=== PATIENT | female | born 1935 | race Caucasian/White ===

== ENCOUNTER 2016-11-05 13:42 | Emergency (ER) | payer MEDICARE ==
[2016-03-24 12:23] VITALS: BMI 30.1
[~2016-11-05 13:42] MED LIST: AMBIEN10 MG PO; AMOXICILLIN875 MG PO; ASPIRIN EC81 M1 PO; BAYER CHEWABLE81 MG PO; CATAPRES0.1 MG PO; DICLOFENAC SODI50 MG PO; FLAGYL250 MG PO; HYDROCODON-ACE1 EAC9 PO; NEURONTIN600 MG PO; NITROQUICK0.4 MG SL; NORVASC5 MG PO; PEPCID20 MG PO; PLAVIX75 MG PO; PRAVACHOL20 MG PO; PROZAC40 MG PO; SYNTHROID88 MCG PO; VALIUM 2 MG TAB2 MG PO; VITAMIN D50000 UNIT PO; ZESTRIL40 MG PO; ZOFRAN8 MG PO
[2016-11-05 14:08] LABS: BASOPHILS 0.2 % (0-2); EOSINOPHILS 2.7 % (0-7); HEMOGLOBIN 12.5 g/dL (12-16); IMMATURE GRANULOCYTES 0.5 % (0-5); LYMPHOCYTES 32.9 % (15-50); MCH 28.5 pg (26.0-34.0); MCHC 32.1 g/dL (31.0-37.0); MCV 88.8 fL (80.0-100.0); MEAN PLATELET VOLUME 11.3 fL (7.4-10.4); MONOCYTES 7.3 % (2-11); NEUTROPHILS 56.4 % (40-80); PLATELET COUNT 173 10x3/uL (130-400); RBC 4.39 10x6/uL (4.00-5.40); RDW 13.8 % (11.5-14.5); WBC 5.7 10x3/uL (4.8-10.8)
[2016-11-05 14:22] LABS: ALBUMIN 3.4 g/dL (3.4-5.0); ANION GAP 12.5 mmol/L (8-16); BILIRUBIN - TOTAL 0.32 mg/dL (0.2-1.3); CALCIUM 9.8 mg/dL (8.5-10.1); CARBON DIOXIDE 25.4 mmol/L (21.0-32.0); CREATININE - SERUM 1.5 mg/dL (0.6-1.3); POTASSIUM - SERUM 3.9 mmol/L (3.5-5.1); PROTEIN - SERUM 6.9 g/dL (6.4-8.2)
[2016-11-05 15:26] LABS: APPEARANCE CLEAR (CLEAR); BILIRUBIN NEGATIVE (NEGATIVE); COLOR YELLOW (YELLOW); GLUCOSE NEGATIVE (NEGATIVE); KETONE NEGATIVE (NEGATIVE); LEUKOCYTE ESTERASE TRACE (NEGATIVE); NITRITE NEGATIVE (NEGATIVE); PROTEIN TRACE mg/dL (NEGATIVE); SPECIFIC GRAVITY 1.025 (1.005-1.020); UROBILINOGEN NORMAL (NORMAL)
[2016-11-05 15:28] LABS: BACTERIA MODERATE /hpf (NONE SEEN); EPITHELIAL CELLS 0-5 /hpf (0-5); RED CELLS - URINE 0-5 /hpf (0-5)
== END 2016-11-05 15:59 | disposition home or self-care (01) ==
LOC: D.ER 13:42
PROVIDERS: Emergency Medicine
DX: R53.1 Weakness (principal); Z86.73 Personal history of transient ischemic attack (TIA), and cerebral infarction without residual deficits; I10 Essential (primary) hypertension

== ENCOUNTER 2017-04-03 10:09 | Emergency (ER) | payer MEDICARE ==
[2016-03-24 12:23] VITALS: BMI 30.1
== END 2017-04-03 12:12 | disposition home or self-care (01) ==
LOC: D.ER 10:09
DX: M25.551 Pain in right hip (principal); W06.XXXA Fall from bed, initial encounter; Y93.89 Activity, other specified; Y92.013 Bedroom of single-family (private) house as the place of occurrence of the external cause

== ENCOUNTER 2017-06-22 04:28 | Inpatient (IN) | payer MEDICARE ==
[~2017-06-22] VITALS: Ht 175.3 cm; Wt 101.2 kg
[2017-06-22 05:45] LABS: BASOPHILS 0.1 % (0-2); EOSINOPHILS 1.2 % (0-7); HEMATOCRIT 42.5 % (36.0-48.0); HEMOGLOBIN 13.4 g/dL (12-16); IMMATURE GRANULOCYTES 0.6 % (0-5); LYMPHOCYTES 16.7 % (15-50); MCH 28.8 pg (26.0-34.0); MCHC 31.5 g/dL (31.0-37.0); MCV 91.4 fL (80.0-100.0); MEAN PLATELET VOLUME 12.2 fL (7.4-10.4); MONOCYTES 5.9 % (2-11); NEUTROPHILS 75.5 % (40-80); PLATELET COUNT 170 10x3/uL (130-400); RBC 4.65 10x6/uL (4.00-5.40); RDW 14.2 % (11.5-14.5); WBC 8.1 10x3/uL (4.8-10.8)
[2017-06-22 06:06] LABS: ALBUMIN 3.5 g/dL (3.4-5.0); ANION GAP 21.7 mmol/L (8-16); BILIRUBIN - TOTAL 0.58 mg/dL (0.2-1.3); CALCIUM 10.4 mg/dL (8.5-10.1); CARBON DIOXIDE 16.7 mmol/L (21.0-32.0); POTASSIUM - SERUM 5.4 mmol/L (3.5-5.1); PROTEIN - SERUM 7.6 g/dL (6.4-8.2)
[2017-06-22 06:11] LABS: MAGNESIUM - SERUM 2.6 mg/dL (1.8-2.4); THYROID STIMULATING HORMONE 6.71 uIU/mL (0.36-3.74)
[2017-06-22 10:23] LABS: APPEARANCE CLEAR (CLEAR); BILIRUBIN NEGATIVE (NEGATIVE); COLOR YELLOW (YELLOW); GLUCOSE NEGATIVE (NEGATIVE); KETONE NEGATIVE (NEGATIVE); NITRITE NEGATIVE (NEGATIVE); PROTEIN NEGATIVE (NEGATIVE); UROBILINOGEN NORMAL (NORMAL)
[2017-06-22 11:20] LABS: CKMB 0.5 U/L (0.0-3.6); CREATINE KINASE 44 UL (21-215)
[2017-06-22 11:24] LABS: TROPONIN-I < 0.017 ng/mL (0.000-0.060)
--- NOTE | 2017-06-22 13:12 | NUR ---
PT ARRIVED VIA WHEELCHAIR ACCOMPANIED BY ER STAFF. PT IS ALERT AND ORIENTED. ON ROOM AIR. IV SEEN TO RIGHT AC THAT IS CURRENTLY SALINE LOCKED. YELLOW ID BAND PLACED ON PT (DUE TO HX OF FALLS) ALONG WITH NON-SKID SOCKS. TRAY ORDERED FOR PT. CUP OF ICE WATER PLACED AT BEDSIDE. PT IS AWARE TO USE CALL LIGHT IF NEEDING ASSISTANCE FROM STAFF MEMBERS. WILL ADMIT PT AND CONTINUE TO MONITOR AND CONTINUE WITH PLAN OF CARE.
[2017-06-22 13:56] VITALS: BP 137/70; BMI 33.3
[2017-06-22] MEDS ORDERED: HYSINGLA ER20 MG PO (13:56)
[2017-06-22 16:00] VITALS: BP 134/60
--- NOTE | 2017-06-22 17:33 | NUR ---
ON MONITOR SHOWING SR, HR 91.
--- NOTE | 2017-06-22 17:48 | NUR ---
ATTEMPTED TO PLACE SCDS ON PT HOWEVER SCD MACHINE IS NOT WORKING PROPERLY. MAINTENANCE CALLED, SPOKE WITH PUSHPA. PUSHPA STATES THAT [facility] USUALLY DEALS WITH THE SCD MACHINES AND THEY HAVE ALREADY LEFT. PUSHPA ASKED IF I COULD GET ANOTHER MACHINE, I INFORMED PUSHPA THAT MACHINES ARE ATTATCHED TO THE BED. WILL CALL [facility] ON SHIFT TOMORROW.
--- NOTE | 2017-06-22 18:22 | NUR ---
PT SITTING UP IN BED WITH EYES OPEN RESTING. SCDS PLACED ON PT DUE TO MAINTENENCE PERSONEL COMING AND SWITCHING OUT SCD MACHINES. PT IS REQUESTING ME TO HELP RE-POSITION HER. RE-POSITIONED PT REQUESTED. NO FURTHER NEED AT THIS TIME. WILL CONTINUE TO MONITOR.
--- NOTE | 2017-06-22 19:33 | NUR ---
RECEIVED REPORT, WILL ASSUME CARE OF PT, PT SLEEPING, BED IS LOW, SRX2, CALL LIGHT IN REACH, WILL CONTINUE PLAN OF CARE
[2017-06-22 20:11] VITALS: BP 144/63
--- NOTE | 2017-06-22 20:20 | NUR ---
PT REFUSED GABAPENTIN, SAYS SHE QUIT TAKING IT AT HOME, MAKES HER DIZZY
[2017-06-23 00:32] VITALS: BP 145/9
--- NOTE | 2017-06-23 00:55 | NUR ---
ASSESSMENT COMPLETE,SEE FLOWSHEET, PT SLEEPING, BED IS LOW, SRX2, CALL LIGHT IN REACH, WILL CONTINUE PLAN OF CARE
[2017-06-23 04:20] VITALS: BP 148/65
[2017-06-23 05:17] LABS: BASOPHILS 0.2 % (0-2); EOSINOPHILS 3.4 % (0-7); HEMATOCRIT 35.6 % (36.0-48.0); HEMOGLOBIN 11.4 g/dL (12-16); IMMATURE GRANULOCYTES 0.4 % (0-5); LYMPHOCYTES 37.1 % (15-50); MCH 28.6 pg (26.0-34.0); MEAN PLATELET VOLUME 12.1 fL (7.4-10.4); MONOCYTES 11.2 % (2-11); NEUTROPHILS 47.7 % (40-80); PLATELET COUNT 158 10x3/uL (130-400); RBC 3.99 10x6/uL (4.00-5.40); RDW 13.9 % (11.5-14.5)
--- NOTE | 2017-06-23 05:23 | NUR ---
ASKING TO HAVE SCD REMOVED FOR AWHILE
[2017-06-23 05:25] LABS: MCV 89.2 fL (80.0-100.0); WBC 5.5 10x3/uL (4.8-10.8)
[2017-06-23 05:27] LABS: CALCIUM 8.9 mg/dL (8.5-10.1); CREATININE - SERUM 2.6 mg/dL (0.6-1.3)
[2017-06-23 05:45] LABS: ANION GAP 15.4 mmol/L (8-16); CARBON DIOXIDE 21.5 mmol/L (21.0-32.0); POTASSIUM - SERUM 3.9 mmol/L (3.5-5.1)
--- NOTE | 2017-06-23 07:20 | NUR ---
AM ROUNDING- RECEIVED REPORT FROM AMMUNITION COMPONENTS INSPECTOR NURSE MAXIMILIANO. PT IS CURRENTLY LAYING IN BED ON LEFT SIDE WITH EYES OPEN RESTING. ON ROOM AIR. ON MONITOR SHOWING SR, HR 79. IV SEEN TO RIGHT AC THAT IS CURRENTLY SALINE LOCKED. NO NEED AT THIS CURRENT TIME. WILL CONTINUE TO MONITOR AND CONTINUE WITH PLAN OF CARE.
[2017-06-23 07:44] VITALS: Ht 175.3 cm; Wt 101.2 kg
[2017-06-23 07:46] VITALS: BP 174/72
--- NOTE | 2017-06-23 09:46 | NUR ---
AM MEDICATIONS PASSED AND SHIFT ASSESSMENT DONE. PT IS CURRENTLY REQUESTING DONUT PILLOW FOR COMFORT FOR TAILBONE PAIN. [facility] STAFF MEMBER THAT WAS MAKING ROUNDS GAVE THIS NURSE NUMBER TO CALL FOR DONUT PILLOW. WILL CONTINUE TO MONITOR.
--- NOTE | 2017-06-23 12:03 | NUR ---
SPOKE WITH SANTO, WOUND CARE NURSE REGARDING LETTING PT USE DONUT PILLOW FOR COMFORT DUE TO PTS TAILBONE BEING EXTREMLEY SORE. SANTO RN STATES IT IS MORE APPROPIATE TO USE PILLOW UNDER PT TO RELIEVE PRESSURE AND TO TURN FREQUENTLY ON SHIFT. PT IS CURRENTLY TURNED ON PILLOW TO LEFT SIDE. WILL LET PT KNOW ABOUT THIS. WILL CONTINUE TO MONITOR.
[2017-06-23 12:42] VITALS: BP 187/72
[2017-06-23 17:00] VITALS: BP 173/76
--- NOTE | 2017-06-23 17:17 | NUR ---
ASSIST PT TO BATHROOM. ASSIST PT BACK TO BED AND READJUST PT AND PT EATING DINNER. CALL LIGHT WITHIN REACH. CONT TO ANIBAL PT
--- NOTE | 2017-06-23 18:13 | NUR ---
PT IS CURRENTLY LAYING IN BED WITH EYES OPEN RESTING. NO NEED AT THIS CURRENT TIME. WILL CONTINUE TO MONITOR.
[2017-06-23 21:29] VITALS: BP 171/80
--- NOTE | 2017-06-23 23:43 | NUR ---
PATIENT IS PLAYING GAMES ON HER PHONE IN BED. REQUESTS ASSISTANCE TO THE BATHROOM. SHE IS ABLE TO WALK TO THE BATHROOM WITH MINIMAL ASSISTANCE. REPORTS THAT SHE CAN NOT TAKE THE NEURONTIN THAT IS ORDERED BECAUSE IT MAKES HER SO DIZZY. BED LOW CALL LIGHT IN REACH.
[2017-06-24] VITALS (10 sets, daily range): BP systolic 103–199; BP diastolic 64–99
--- NOTE | 2017-06-24 03:16 | NUR ---
PT IM BED RESTING QUIETLY. BREATHING EVEN AND UNLABORED. BED IN LOW POSITION, CALL LIGHT WITHIN REACH. WILL CTM.
--- NOTE | 2017-06-24 05:22 | NUR ---
B/P 195/94 AT 5:20.
[2017-06-24 06:11] LABS: BASOPHILS 0.2 % (0-2); HEMATOCRIT 36.5 % (36.0-48.0); HEMOGLOBIN 11.9 g/dL (12-16); IMMATURE GRANULOCYTES 0.5 % (0-5); LYMPHOCYTES 31.5 % (15-50); MCH 28.5 pg (26.0-34.0); MCHC 32.6 g/dL (31.0-37.0); MCV 87.3 fL (80.0-100.0); MEAN PLATELET VOLUME 11.4 fL (7.4-10.4); MONOCYTES 12.2 % (2-11); NEUTROPHILS 52.6 % (40-80); PLATELET COUNT 154 10x3/uL (130-400); RBC 4.18 10x6/uL (4.00-5.40); RDW 13.7 % (11.5-14.5); WBC 6.6 10x3/uL (4.8-10.8)
[2017-06-24 06:16] LABS: ANION GAP 14.7 mmol/L (8-16); CALCIUM 9.6 mg/dL (8.5-10.1); CARBON DIOXIDE 22.1 mmol/L (21.0-32.0); POTASSIUM - SERUM 3.8 mmol/L (3.5-5.1)
[2017-06-24 06:28] LABS: CREATININE - SERUM 1.8 mg/dL (0.6-1.3)
--- NOTE | 2017-06-24 07:45 | NUR ---
AM ROUNDS - PT IN BED AND APPEARS TO BE SLEEPING WITH EQUAL AND NON LABORED BREATHING. PT IS ON ROOM AIR. IV TO RIGHT AC, SL. EP, K+3.9. MONITOR SHOWING SR, HR 77. PT IS UP WITH ASSIST. YELLOW BAND ON. BED AT LOWEST POSITION. CALL DEY IN USE/REACH. SIDE RAILS UP X2. WILL CONITNUE TO MONITOR
--- NOTE | 2017-06-24 14:36 | NUR ---
Patient Name: SOHA ZAMORA Admission Status: ER Accout number: [id number] Admission Date: 06-22-2017 : 1935 Admission Diagnosis: Attending: MAURA MALONEY Current LOS: 2 Anticipated DC Date: 06-25-2017 Planned Disposition: HOME WITH HOME HEALTH Primary Insurance: MEDICARE A & B PLANNED EXTERNAL PROVIDER: [facility] Discharge Planning Comments: * Is the patient Alert and Oriented? Yes 0 * How many steps to enter\exit or inside your home? 2 0 * PCP DR. KRISHNA 0 * Pharmacy [facility] ON [address] 0 * Preadmission Environment Home Alone 0 * ADLs Independent 0 * Equipment Cane Other Oxygen Rolling Walker 0 * Other Equipment OXYGEN AT NIGHT - FROM COMPANY IN [place] [employer] NO MEDICAL EQUIPMENT PROVIDER PREFERENCE 0 * List name and contact numbers for known caregivers / representatives who currently or will assist patient after discharge: ALPHONSO FUCHS, SISTER, 0 * Community resources currently utilized Home Health Private Duty Care 0 * Please name any agencies selected above. [facility] [phone] [facility], M-F, 8:30AM TO 2:30PM 0 * Additional services required to return to the preadmission environment? No 0 * Can the patient safely return to the preadmission environment? Yes 0 * Has this patient been hospitalized within the prior 30 days at any hospital? Yes 0 CM MET WITH PT IN ROOM TO DISCUSS DISCHARGE PLANNING AND NEEDS. PT REPORTS LIVING AT HOME INDEPENDENTLY AND ALONE. PT HAS NO MEDICAL EQUIPMENT AND [facility] WAS SET TO ADMIT JUST PRIOR TO PT ADMITTING TO HOSPITAL. CM DISCUSSED AVAILABILITY OF HOME HEALTH, REHAB SERVICES AND MEDICAL EQUIPMENT. PT REPORTS SHE CAME IN TO GET REHAB AT [facility]; SHE HAS BEEN THERE BEFORE AND WANTS REFERRAL SENT THERE, REPORTS HER FAMILY WILL PICK HER UP FOR DISCHARGE HOME. CHOICE SIGNED FOR [facility]. CM FAXED REFERRAL TO [facility] AT [phone]. CM CALLED [facility], , SPOKE TO SANTO WHO REPORTS NO BEDS UNTIL LATE NEXT WEEK ARE AVAILABLE. CM SPOKE TO PT IN ROOM, OFFERED OTHER LONG-TERM FACILITY PLACEMENT FOR REHAB. PT WILL NOT GO ANYWHERE ELSE, REPORTS SHE WILL GO HOME WITH [facility], PAY BILLS AND CALL [facility] NEXT WEEK AND TRY TO GET IN THEN. CM CALLED [facility], , SPOKE TO LUIS WHO REPORTS PT TO BE ON HOLD AND THEY CAN ADMIT THE DAY AFTER DISCHARGE. FAXED REFERRAL TO [facility] AT [phone]. FOR DISCHARGE, NOTIFY [facility] AT [phone], FAX DISCHARGE INFORMATION TO [facility] AT [phone]. Ore Dryer: Margarito Richmond
--- NOTE | 2017-06-24 16:41 | NUR ---
PT IN BED AT THIS TIME WITH NO NEEDS. WILL CONTINUE TO MONITOR
[2017-06-25] VITALS: BP 148/57
--- NOTE | 2017-06-25 04:37 | NUR ---
BODY WORKER AT BEDSIDE TO OBTAIN VITALS, CALL LIGHT IN REACH. WILL CONTINUE WITH PLAN OF CARE.
[2017-06-25 06:00] LABS: BASOPHILS 0.1 % (0-2); HEMATOCRIT 37.1 % (36.0-48.0); HEMOGLOBIN 12.2 g/dL (12-16); IMMATURE GRANULOCYTES 0.8 % (0-5); LYMPHOCYTES 31.3 % (15-50); MCH 28.6 pg (26.0-34.0); MCHC 32.9 g/dL (31.0-37.0); MCV 87.1 fL (80.0-100.0); MEAN PLATELET VOLUME 11.7 fL (7.4-10.4); MONOCYTES 11.5 % (2-11); NEUTROPHILS 53.3 % (40-80); PLATELET COUNT 164 10x3/uL (130-400); RBC 4.26 10x6/uL (4.00-5.40); RDW 13.7 % (11.5-14.5); WBC 7.1 10x3/uL (4.8-10.8)
[2017-06-25 06:23] LABS: ANION GAP 14.2 mmol/L (8-16); CREATININE - SERUM 1.7 mg/dL (0.6-1.3); POTASSIUM - SERUM 4.2 mmol/L (3.5-5.1)
--- NOTE | 2017-06-25 07:47 | NUR ---
RECEIVED REPORT ON PATIENT. MORNING ROUNDS MADE. PATIENT RESTING WITH EYES CLOSED. RESPIRATIONS EVEN AND UNLABORED. BED IN LOWEST POSITION, SR UP X 2, CALL LIGHT IN REACH. CPOC.
[2017-06-25 08:46] VITALS: BP 207/99
--- NOTE | 2017-06-25 09:15 | NUR ---
PATIENT REFUSED NORVASC. STATES IT MADE HER "BLACK OUT" AND THAT SHE HAS BEEN TAKEN OFF ALL HTN MEDS AT THIS TIME.
[2017-06-25 12:07] VITALS: BP 167/93
--- NOTE | 2017-06-25 12:13 | NUR ---
Nutrition follow-up: Diet: Renal PO intake 83% average intake of last 6 meals Labs reviewed Wt: 223# +BM PO intake good at this time. RDN following.
--- NOTE | 2017-06-25 12:45 | NUR ---
PATIENT REFUSING NORVASC. STATES SHE DOESN'T WANT TO "BLACK OUT AGAIN". CALLED PHARMACY TO GET MED LIST FAXED OVER. PT NOT SURE OF WHAT SHE NORMALLY TAKES FOR HTN. STATES DR. DOYLE STOPPED THE LISINOPRIL AND THE NORVASC. CPOC.
--- NOTE | 2017-06-25 12:56 | NUR ---
RESTING QUIETLY IN BED. MONITOR SHOWS NSR @ RATE OF 87. WILL CONTINUE TO MONITOR.
[2017-06-25] MEDS ORDERED: CARDURA4 MG PO (14:18)
--- NOTE | 2017-06-25 14:36 | NUR ---
PATIENT SITTING ON SIDE OF BED. WENT OVER ALL DC PAPERWORK. ALL QUESTIONS ANSWERED. PAPERS SIGNED. IV TO RIGHT ARM DC'D WITH TIP INTACT. TELEMETRY REMOVED. CALLED SEPARATOR INSERTER FOR WC ESCORT.
--- NOTE | 2017-06-25 14:42 | NUR ---
PATIENT ESCORTED TO VEHICLE VIA WHEELCHAIR BY STAFF.
--- NOTE | 2017-06-26 09:08 | NUR ---
Patient Name: SOHA ZAMORA Encounter No: [id number] : 1935 Primary Insurance: MEDICARE A & B Anticipated DC Date: 06-25-2017 Planned Disposition: Home with Home Health External Planned Provider: [facility] DCP follow-up note: PT DISCHARGED HOME YESTERDAY, CM CALLED LUIS AT [facility] AT [phone], LUIS ADVISED THAT CM DID CALL YESTERDAY AND FAXED DISCHARGE INFORMATION TO [facility] YESTERDAY. PT IS ON RESUMPTION SCHEDULE FOR TODAY. NO FURTHER NEEDS IDENTIFIED. Green End Worker: Margarito Richmond
== END 2017-06-25 14:50 | disposition home health service (06) | DRG 312 ==
LOC: D.ER 04:28 → D.M2 11:58
PROVIDERS: Emergency Medicine; Family Medicine; ADMIT Family Medicine
DX: I95.1 Orthostatic hypotension (principal); N17.9 Acute kidney failure, unspecified; I11.0 Hypertensive heart disease with heart failure; I50.9 Heart failure, unspecified; I25.10 Atherosclerotic heart disease of native coronary artery without angina pectoris; E78.5 Hyperlipidemia, unspecified; J44.9 Chronic obstructive pulmonary disease, unspecified; E03.9 Hypothyroidism, unspecified; G47.30 Sleep apnea, unspecified; G25.81 Restless legs syndrome; Z86.73 Personal history of transient ischemic attack (TIA), and cerebral infarction without residual deficits; E86.0 Dehydration

== ENCOUNTER 2017-09-19 10:31 | Emergency (ER) | payer MEDICARE ==
[2017-06-23 07:44] VITALS: BMI 33.2
[~2017-09-19 10:31] MED LIST changes: +CARDURA4 MG PO; +HYSINGLA ER20 MG PO
== END 2017-09-19 12:35 | disposition home or self-care (01) ==
LOC: D.ER 10:31
DX: B02.9 Zoster without complications (principal); N18.9 Chronic kidney disease, unspecified; Z86.73 Personal history of transient ischemic attack (TIA), and cerebral infarction without residual deficits

== ENCOUNTER 2017-10-05 09:09 | Inpatient (IN) | payer MEDICARE ==
[2017-10-05] VITALS: BP 98/43
[~2017-10-05] VITALS: Ht 175.3 cm; Wt 106.6 kg
--- NOTE | ~2017-10-05 | EC ---
PATIENT:SOHA ZAMORA DATE OF SERVICE: 10/05/17 SEX: F MEDICAL RECORD: [id number] DATE OF : [birth year] LOCATION:D. D.211 AGE OF PATIENT: 81 ADMISSION DATE: 10/05/17 REFERRING PHYSICIAN: INTERPRETING PHYSICIAN: HANNA CISNEROS MD ECHOCARDIOGRAM REPORT ECHO CHARGES 4 ECHO COMPLETE Date: 10/06 CLINICAL DIAGNOSIS: NEAR SYNCOPE HX OF CAD/STENT/CVA ECHOCARDIOGRAPHIC MEASUREMENTS (adult normal given) AC root (d.<3.7cm) 3.3 cm LV Septum d (<1.2 cm> 1.6 cm Valve Excursion 1.7 cm LV Septum (systole) 1.5 cm Left Atria (s.<4.0cm> 3.6 cm LVPW d(<1.2cm) 1.6 cm RV (d.<2.3cm) 4.2 cm LVPW (sytole) 1.8 cm LV diastole(<5.6CM) 3.6 cm MV E-F(>70mm/sec) cm LV systole 2.5 cm LVOT Diameter 1.7 cm MV exc.(>10mm) 1.6 cm Est.ejection fraction (50-75%) % DOPPLER: LVIT cm/sec A 77.0 cm/sec E 56.0 cm/sec LA cm/sec RVSP 19 mmHg LVOT 106 cm/sec AOP1/2T m/s Asc. Ao 161 cm/sec RVOT cm/sec RA cm/sec PA cm/sec AV Gradient Peak 10.39mmHg AV Mean 5.04 mmHg AV Area 1.9 cm MV Gradient Peak 3.73 mmHg MV Mean 1.43 mmHg MV Area cm COMMENTS: Camelid Fiber Sorter: Alfreda OCONNOR Jawbone Puller: Regina Cisneros TAPE# PACS Pericardial Effusion N DATE OF SERVICE: 10/06/2017 PROCEDURE: Transthoracic echocardiogram. FINDINGS: 1. The quality of the echo is difficult with structures difficult to see. 2. The left ventricle shows possible left ventricular hypertrophy, inflow characteristics consistent with diastolic dysfunction. Overall, the left ventricular ejection fraction appears to be normal, although it was not well visualized. ECHOCARDIOGRAM REPORT [id number] SOHA ZAMORA 3. The left atrium is grossly normal. 4. The aortic valve is grossly normal. 5. The mitral valve is grossly normal. 6. The right ventricle shows right ventricular enlargement and right ventricular hypertrophy as well as the right atrium and again we were not able to see things very well. In certain aspects, this is just overall qualitatively normal study; however, quantitative measurements are not well seen. Ejection fraction appears to be at least 55%. TRANSINT:[id number] Voice Confirmation ID: [id number] DOCUMENT ID: [id number] 10/13/2017 Edited for date of service, [facility]. HANNA CISNEROS MD at 1426 CC: [id number] DICTATION DATE: 10/08/17 0753 SUPERVISOR DRYING AND WINDING: 10/08/17 0935 DIS IN 10/09/17 [address] [place] [address]
[2017-10-05 09:55] LABS: BASOPHILS 0.2 % (0-2); EOSINOPHILS 0.9 % (0-7); HEMATOCRIT 38.7 % (36.0-48.0); HEMOGLOBIN 12.4 g/dL (12-16); IMMATURE GRANULOCYTES 0.2 % (0-5); LYMPHOCYTES 14.9 % (15-50); MCH 28.3 pg (26.0-34.0); MCV 88.4 fL (80.0-100.0); MEAN PLATELET VOLUME 11.5 fL (7.4-10.4); MONOCYTES 5.1 % (2-11); NEUTROPHILS 78.7 % (40-80); RBC 4.38 10x6/uL (4.00-5.40); RDW 14.7 % (11.5-14.5); WBC 10.3 10x3/uL (4.8-10.8)
[2017-10-05 09:56] LABS: PLATELET COUNT 215 10x3/uL (130-400)
[2017-10-05 10:17] LABS: ALBUMIN 3.2 g/dL (3.4-5.0); ALKALINE PHOSPHATASE 82 U/L (46-116); ALT (SGPT) 28 U/L (10-68); BILIRUBIN - TOTAL 0.43 mg/dL (0.2-1.3); CALC OSMOLALITY 306 mosm/kg (275-300); CALCIUM 10.2 mg/dL (8.5-10.1); CARBON DIOXIDE 20.2 mmol/L (21.0-32.0); CHLORIDE - SERUM 108 mmol/L (98-107); CREATININE - SERUM 3.7 mg/dL (0.6-1.3); POTASSIUM - SERUM 4.7 mmol/L (3.5-5.1); PROTEIN - SERUM 7.5 g/dL (6.4-8.2); SODIUM 142 mmol/L (136-145); UREA NITROGEN 60 mg/dL (7-18); eGFR NON AFRICAN AMERICAN 12 mL/min (90-120)
[2017-10-05 10:21] LABS: GLUCOSE 218 mg/dL (74-106)
[2017-10-05 10:28] LABS: AMYLASE - SERUM 50 U/L (25-115); CKMB 0.3 U/L (0.0-3.6); CREATINE KINASE 106 UL (21-215); LIPASE 166 U/L (73-393); TROPONIN-I < 0.017 ng/mL (0.000-0.060)
[2017-10-05 10:44] LABS: COLOR YELLOW (YELLOW)
[2017-10-05 10:45] LABS: APPEARANCE CLEAR (CLEAR); BILIRUBIN NEGATIVE (NEGATIVE); GLUCOSE NEGATIVE (NEGATIVE); KETONE NEGATIVE (NEGATIVE); NITRITE NEGATIVE (NEGATIVE); PROTEIN NEGATIVE (NEGATIVE); SPECIFIC GRAVITY 1.015 (1.005-1.020); UROBILINOGEN NORMAL (NORMAL)
[2017-10-05 15:02] VITALS: BP 101/44
[2017-10-05 15:13] VITALS: BP 101/44; BMI 31.7
[2017-10-05 21:06] VITALS: BP 70/38
[2017-10-06] VITALS (7 sets, daily range): BP systolic 75–106; BP diastolic 30–58; Ht 175.3 cm; Wt 106.6 kg
[2017-10-06 05:29] LABS: BASOPHILS 0.2 % (0-2); EOSINOPHILS 0.7 % (0-7); HEMATOCRIT 41.2 % (36.0-48.0); HEMOGLOBIN 12.9 g/dL (12-16); IMMATURE GRANULOCYTES 0.4 % (0-5); LYMPHOCYTES 18.2 % (15-50); MCHC 31.3 g/dL (31.0-37.0); MCV 89.4 fL (80.0-100.0); MEAN PLATELET VOLUME 11.4 fL (7.4-10.4); NEUTROPHILS 74.5 % (40-80); PLATELET COUNT 232 10x3/uL (130-400); RBC 4.61 10x6/uL (4.00-5.40); RDW 15.1 % (11.5-14.5); WBC 11.3 10x3/uL (4.8-10.8)
[2017-10-06 05:40] LABS: ANION GAP 18.5 mmol/L (8-16); CALCIUM 9.2 mg/dL (8.5-10.1); CARBON DIOXIDE 20.5 mmol/L (21.0-32.0); CREATININE - SERUM 5.2 mg/dL (0.6-1.3); MAGNESIUM - SERUM 2.3 mg/dL (1.8-2.4)
[2017-10-06 16:42] LABS: ERYTHROCYTE SEDIMENTATION RATE 14 mm/hr (0-30)
[2017-10-07 06:19] LABS: BASOPHILS 0.1 % (0-2); EOSINOPHILS 1.9 % (0-7); HEMATOCRIT 35.3 % (36.0-48.0); HEMOGLOBIN 10.8 g/dL (12-16); IMMATURE GRANULOCYTES 0.4 % (0-5); LYMPHOCYTES 23.4 % (15-50); MCH 27.8 pg (26.0-34.0); MCHC 30.6 g/dL (31.0-37.0); MCV 90.7 fL (80.0-100.0); MEAN PLATELET VOLUME 11.3 fL (7.4-10.4); MONOCYTES 10.3 % (2-11); NEUTROPHILS 63.9 % (40-80); PLATELET COUNT 189 10x3/uL (130-400); RBC 3.89 10x6/uL (4.00-5.40); RDW 15.4 % (11.5-14.5); WBC 8.3 10x3/uL (4.8-10.8)
[2017-10-07 06:27] LABS: ANION GAP 19.6 mmol/L (8-16); CALCIUM 8.4 mg/dL (8.5-10.1); CARBON DIOXIDE 19.8 mmol/L (21.0-32.0); CREATININE - SERUM 6.1 mg/dL (0.6-1.3); POTASSIUM - SERUM 4.4 mmol/L (3.5-5.1)
[2017-10-07 06:34] VITALS: BP 99/34
[2017-10-07 10:46] VITALS: BP 139/57
[2017-10-07 15:58] LABS: PRO/CRE RATIO URINE 0.9 mg/g; PROTEIN - URINE 147.6 mg/dL (0.0-11.9)
[2017-10-07 16:16] LABS: APPEARANCE HAZY (CLEAR); BILIRUBIN NEGATIVE (NEGATIVE); COLOR YELLOW (YELLOW); GLUCOSE NEGATIVE (NEGATIVE); KETONE NEGATIVE (NEGATIVE); NITRITE NEGATIVE (NEGATIVE); PROTEIN 1+ mg/dL (NEGATIVE); UROBILINOGEN NORMAL (NORMAL)
[2017-10-07 16:19] LABS: BACTERIA MODERATE /hpf (NONE SEEN); EPITHELIAL CELLS 0-5 /hpf (0-5); WHITE CELLS - URINE >50 /hpf (0-5)
[2017-10-07 20:00] VITALS: BP 106/51
[2017-10-08 04:40] LABS: BASOPHILS 0.2 % (0-2); EOSINOPHILS 2.1 % (0-7); HEMATOCRIT 31.7 % (36.0-48.0); IMMATURE GRANULOCYTES 0.3 % (0-5); LYMPHOCYTES 28.6 % (15-50); MCH 28.2 pg (26.0-34.0); MCHC 31.5 g/dL (31.0-37.0); MCV 89.5 fL (80.0-100.0); MEAN PLATELET VOLUME 11.2 fL (7.4-10.4); MONOCYTES 9.8 % (2-11); PLATELET COUNT 171 10x3/uL (130-400); RBC 3.54 10x6/uL (4.00-5.40); RDW 14.8 % (11.5-14.5)
[2017-10-08 04:41] LABS: WBC 6.1 10x3/uL (4.8-10.8)
[2017-10-08 04:58] LABS: ANION GAP 15.8 mmol/L (8-16); CALCIUM 8.3 mg/dL (8.5-10.1); CARBON DIOXIDE 18.5 mmol/L (21.0-32.0); CREATININE - SERUM 5.4 mg/dL (0.6-1.3); POTASSIUM - SERUM 4.3 mmol/L (3.5-5.1)
[2017-10-08 06:42] VITALS: BP 103/36
[2017-10-08 09:50] VITALS: BP 154/58
[2017-10-08 10:25] VITALS: BP 133/51
[2017-10-08 13:01] VITALS: BP 116/53
[2017-10-08 13:16] LABS: SPE - A/G RATIO 0.9 (0.7-1.7); SPE - ALBUMIN 2.9 g/dL (2.9-4.4); SPE - ALPHA-1 GLOBULIN 0.3 g/dL (0.0-0.4); SPE - ALPHA-2 GLOBULIN 0.8 g/dL (0.4-1.0); SPE - BETA GLOBULIN 1.2 g/dL (0.7-1.3); SPE - GAMMA GLOBULIN 0.9 g/dL (0.4-1.8); SPE - M-SPIKE Not Observed g/dL (Not Observed); SPE - TOTAL PROTEIN 6.2 g/dL (6.0-8.5)
[2017-10-08 17:28] VITALS: BP 151/69
[2017-10-08 21:55] VITALS: BP 146/54
[2017-10-09 00:55] VITALS: BP 130/56
[2017-10-09 04:49] LABS: BASOPHILS 0.2 % (0-2); EOSINOPHILS 2.9 % (0-7); HEMATOCRIT 31.9 % (36.0-48.0); HEMOGLOBIN 10.2 g/dL (12-16); IMMATURE GRANULOCYTES 0.2 % (0-5); LYMPHOCYTES 26.7 % (15-50); MCH 28.1 pg (26.0-34.0); MCV 87.9 fL (80.0-100.0); MEAN PLATELET VOLUME 11.1 fL (7.4-10.4); MONOCYTES 9.5 % (2-11); NEUTROPHILS 60.5 % (40-80); PLATELET COUNT 158 10x3/uL (130-400); RBC 3.63 10x6/uL (4.00-5.40); RDW 14.5 % (11.5-14.5); WBC 5.2 10x3/uL (4.8-10.8)
[2017-10-09 05:17] LABS: ANION GAP 19.4 mmol/L (8-16); CALCIUM 8.7 mg/dL (8.5-10.1); CARBON DIOXIDE 16.9 mmol/L (21.0-32.0); POTASSIUM - SERUM 4.3 mmol/L (3.5-5.1)
[2017-10-09 05:48] VITALS: BP 152/72
[2017-10-09 10:28] VITALS: BP 159/93
[2017-10-09 13:17] VITALS: BP 195/91
[2017-10-09 13:17] LABS: UPE RAND - ALBUMIN 44.1 % (()); UPE RAND - ALPHA 1 GLOBULIN 2.5 % (()); UPE RAND - BETA GLOBULIN 19.2 % (()); UPE RAND - GAMMA GLOBULIN 19.2 % (())
[2017-10-09] MEDS ORDERED: SODIUM CL 0.91000 ML IV (15:58)
[2017-10-09 16:30] VITALS: BP 152/70
== END 2017-10-09 17:15 | DRG 314 ==
LOC: D.ER 09:09 → D.M2 11:28 → D.EDHOLD 11:28 → D.M2 12:09
PROVIDERS: Family Medicine; Internal Medicine Nephrology
DX: I95.89 Other hypotension (principal); N17.0 Acute kidney failure with tubular necrosis; T50.905A Adverse effect of unspecified drugs, medicaments and biological substances, initial encounter; R19.7 Diarrhea, unspecified; E86.0 Dehydration; E78.5 Hyperlipidemia, unspecified; I25.10 Atherosclerotic heart disease of native coronary artery without angina pectoris; J44.9 Chronic obstructive pulmonary disease, unspecified; I11.0 Hypertensive heart disease with heart failure; I50.9 Heart failure, unspecified; E03.9 Hypothyroidism, unspecified; Z95.5 Presence of coronary angioplasty implant and graft; Z86.73 Personal history of transient ischemic attack (TIA), and cerebral infarction without residual deficits

== ENCOUNTER 2017-10-09 18:15 | Inpatient (IN) | payer MEDICARE ==
[~2017-10-09] VITALS: Ht 175.3 cm; Wt 108.0 kg
--- NOTE | ~2017-10-09 | RHP ---
PATIENT: SOHA ZAMORA MEDICAL RECORD: [id number] ACCOUNT: [id number] LOCATION:[facility]17 : [birth year] ADMISSION DATE: 10/09/17 REHABILITATION HISTORY AND PHYSICAL EXAMINATION POST ADMISSION PHYSICIAN EXAMINATION POST-ADMISSION PHYSICAL EXAMINATION AND HISTORY AND PHYSICAL DATE OF ADMISSION: 10/09/2017 ADMITTING DIAGNOSIS: Acute renal failure secondary to hypoperfusion. HISTORY OF PRESENT ILLNESS: The patient is an 81-year-old female patient admitted to inpatient rehabilitation with acute renal failure secondary to hypoperfusion. She was admitted to the hospital from the ER on 10/05. She arrived to the ER complaining of dizziness. Her dizziness sensation was like she was going to pass out. She also states she had a tight sensation in her chest the night prior to coming in. She was fatigued, weak and hypotension with systolic blood pressure running in the 70s. There was no indication that she had a dysrhythmia or ischemic symptoms, rather hypovolemia with resultant orthostasis. On admit, her creatinine was 3.6 and it climbed to 6.1. Nephrology and cardiology were consulted. Heart rate was irregular. She had some paroxysmal atrial fib noted. Her lungs were clear bilaterally. Abdomen was soft. Neurologically, the patient moved all extremities with no gross motor or sensory deficits. She lived alone, was independent with a rolling walker for ADLs and mobility. She has a caregiver, who comes to cook, runs errands, and drops her to her appointments. Currently, she is [id number] assist for ADLs and mobility. She is in chronic AFib, on a quality assurance monitor final. She is wearing O2 at 2 liters nasal cannula. She has a Guido catheter for urinary incontinence and retention. She would like to regain her strength and hopefully return back home to her prior level of functioning. Comorbidities include renal failure, acute kidney injury, hypoperfusion, hypertension, adverse drug effect, dehydration, AFib, UTI, hyponatremia, diarrhea, hypertension, hyperlipidemia, coronary artery disease, hypothyroidism, abdominal pain, generalized weakness, fatigue, anxiety, urinary retention, and diverticulitis. PAST MEDICAL HISTORY: Significant for CVA, neuropathy, TIA, weakness, vertigo, thyroid problems, coronary artery disease, COPD, O2 dependent, depression, and anxiety. PAST SURGICAL HISTORY: Includes gallbladder surgery, hysterectomy, left knee replacement. She has also had a partial colectomy. ALLERGIES: SEAFOOD, STATINS, ANY TYPE OF HMG-COA REDUCTASE INHIBITORS. CURRENT MEDICATIONS: She is on vitamin D 50,000 units. She is on Synthroid 88 mcg daily. She is on Prozac 40 mg daily, Cardura 4 mg daily, Plavix 75 mg daily, aspirin 81 mg daily. She is on Nitrostat p.r.n., Natalia 1 tab every 4 hours p.r.n., and Valium 2 mg b.i.d. p.r.n. HABITS: No alcohol or tobacco use. FAMILY HISTORY: Noncontributory. SOCIAL HISTORY: The patient hopes to return back home and get back to her prior HISTORY AND PHYSICAL [id number] SOHA ZAMORA level of functioning with her caregiver. REVIEW OF SYSTEMS: GENERAL: Does complain of weakness. HEENT: Denies cold, cough, or congestion. CARDIOVASCULAR: Denies chest pain. PHYSICAL EXAMINATION: VITAL SIGNS: Stable, afebrile. GENERAL: An elderly female, in no acute distress upon exam. HEENT: Normocephalic and atraumatic. Mucosa moist. NECK: Supple. No lymphadenopathy. LUNGS: Clear at this time. HEART: Irregular rate and rhythm. ABDOMEN: Benign. EXTREMITIES: No clubbing, cyanosis, or edema. NEUROLOGIC: She was noted to be weak. LABORATORY DATA: Her white count is 5.6, H&H of 10.4 and 31.9, and platelet count was 179. Sodium 146, potassium 4.2, BUN and creatinine of 41 and 2.7, blood sugars noted to be 88. ASSESSMENT: This is an 81-year-old female patient admitted to rehab with a working diagnosis of hypoperfusion and critical illness myopathy. The patient has potential to make improvement. We will institute the following multidisciplinary therapies including, but not limited to physical, occupational, respiratory, speech, nutritional services, prosthetics and orthotics. Given her complex medical condition and risk for more complications, rehabilitation services cannot be provided at a low level of care such as a longterm facility. PLAN: 1. Admit to [facility] for intensive inpatient therapy to include the following disciplines: A. Physical therapy to improve gait, all transfer skills and bed mobility to a modified independent level. B. Occupational therapy to improve activities of daily living to a modified independent level. C. Case management to assist with discharge planning and placement options. D. Nutrition to assist with nutritional needs. E. Rehabilitation nursing to assist in monitoring the patient's underlying medical conditions and to assist with any type of bowel or bladder management. 2. The patient's current medications will be continued. 3. She is having some elevated blood pressures, so I am going to treat this appropriately. 4. Appreciate renal seeing this patient with us. I am going to follow up on Thursday a.m. or earlier if possible. TRANSINT:[id number] Voice Confirmation ID: [id number] DOCUMENT ID: [id number] EVER notes whether there has been none or any medical/functional change since admission: - No change since preadmission screen. HISTORY AND PHYSICAL [id number] SOHA ZAMORA attests patient continues to be appropriate for IRF: - Continues to be appropriate. KANE GAMBOA MD at 0841 CC: [id number] DICTATION DATE: 10/10/17 0846 DIRECTOR ELECTRICAL ENGINEERING: 10/10/17 1100 ADM IN [address] [place] [address]
[~2017-10-09 18:15] MED LIST changes: +SODIUM CL 0.91000 ML IV
[2017-10-09 21:22] VITALS: BP 189/86
[2017-10-09 23:07] VITALS: BMI 35.2
[2017-10-10 05:13] LABS: BASOPHILS 0.2 % (0-2); EOSINOPHILS 3.1 % (0-7); HEMATOCRIT 31.9 % (36.0-48.0); HEMOGLOBIN 10.4 g/dL (12-16); IMMATURE GRANULOCYTES 0.4 % (0-5); LYMPHOCYTES 25.4 % (15-50); MCHC 32.6 g/dL (31.0-37.0); MEAN PLATELET VOLUME 10.6 fL (7.4-10.4); MONOCYTES 10.6 % (2-11); NEUTROPHILS 60.3 % (40-80); PLATELET COUNT 179 10x3/uL (130-400); RBC 3.71 10x6/uL (4.00-5.40); WBC 5.6 10x3/uL (4.8-10.8)
[2017-10-10 05:22] LABS: ANION GAP 14.5 mmol/L (8-16); CALCIUM 8.6 mg/dL (8.5-10.1); POTASSIUM - SERUM 4.2 mmol/L (3.5-5.1)
[2017-10-10 05:26] LABS: CARBON DIOXIDE 23.7 mmol/L (21.0-32.0); CREATININE - SERUM 2.7 mg/dL (0.6-1.3)
[2017-10-10 07:11] VITALS: BP 201/83
[2017-10-10 14:25] VITALS: Ht 175.3 cm; Wt 108.0 kg
[2017-10-10 19:46] VITALS: BP 183/80
[2017-10-11 10:23] VITALS: BP 148/88
[2017-10-11 19:18] VITALS: BP 171/90
[2017-10-12 05:58] LABS: BASOPHILS 0.2 % (0-2); EOSINOPHILS 3.1 % (0-7); HEMATOCRIT 33.2 % (36.0-48.0); IMMATURE GRANULOCYTES 0.3 % (0-5); LYMPHOCYTES 26.1 % (15-50); MCH 28.3 pg (26.0-34.0); MCHC 33.1 g/dL (31.0-37.0); MCV 85.3 fL (80.0-100.0); MEAN PLATELET VOLUME 10.9 fL (7.4-10.4); NEUTROPHILS 60.3 % (40-80); PLATELET COUNT 195 10x3/uL (130-400); RBC 3.89 10x6/uL (4.00-5.40); WBC 6.1 10x3/uL (4.8-10.8)
[2017-10-12 06:06] LABS: ANION GAP 16.3 mmol/L (8-16); CALCIUM 8.4 mg/dL (8.5-10.1)
[2017-10-12 06:12] LABS: CREATININE - SERUM 1.7 mg/dL (0.6-1.3); POTASSIUM - SERUM 3.3 mmol/L (3.5-5.1)
[2017-10-12 08:26] VITALS: BP 183/82
[2017-10-12 19:13] VITALS: BP 168/83
[2017-10-13 08:04] VITALS: BP 153/77
[2017-10-13 20:00] VITALS: BP 118/69
[2017-10-14 06:41] LABS: ANION GAP 13.7 mmol/L (8-16); CALCIUM 8.3 mg/dL (8.5-10.1); CARBON DIOXIDE 25.4 mmol/L (21.0-32.0); CREATININE - SERUM 1.9 mg/dL (0.6-1.3); POTASSIUM - SERUM 3.1 mmol/L (3.5-5.1)
[2017-10-14 06:42] LABS: BASOPHILS 0.3 % (0-2); EOSINOPHILS 4.4 % (0-7); HEMATOCRIT 31.3 % (36.0-48.0); HEMOGLOBIN 10.2 g/dL (12-16); IMMATURE GRANULOCYTES 0.5 % (0-5); LYMPHOCYTES 25.3 % (15-50); MCH 28.2 pg (26.0-34.0); MCHC 32.6 g/dL (31.0-37.0); MCV 86.5 fL (80.0-100.0); MEAN PLATELET VOLUME 10.9 fL (7.4-10.4); NEUTROPHILS 58.5 % (40-80); PLATELET COUNT 197 10x3/uL (130-400); RBC 3.62 10x6/uL (4.00-5.40); RDW 14.2 % (11.5-14.5); WBC 5.7 10x3/uL (4.8-10.8)
[2017-10-14 11:13] VITALS: BP 165/67
[2017-10-14 19:55] VITALS: BP 124/61
[2017-10-15 08:00] VITALS: BP 162/62
[2017-10-15 19:40] VITALS: BP 113/59
[2017-10-16 07:00] LABS: ANION GAP 14.7 mmol/L (8-16); CALCIUM 8.7 mg/dL (8.5-10.1); CARBON DIOXIDE 24.2 mmol/L (21.0-32.0); CREATININE - SERUM 1.7 mg/dL (0.6-1.3); POTASSIUM - SERUM 3.9 mmol/L (3.5-5.1)
[2017-10-16 07:57] LABS: BASOPHILS 0.2 % (0-2); HEMATOCRIT 32.4 % (36.0-48.0); HEMOGLOBIN 10.2 g/dL (12-16); IMMATURE GRANULOCYTES 0.4 % (0-5); LYMPHOCYTES 25.9 % (15-50); MCH 27.7 pg (26.0-34.0); MCHC 31.5 g/dL (31.0-37.0); MEAN PLATELET VOLUME 11.2 fL (7.4-10.4); MONOCYTES 11.1 % (2-11); NEUTROPHILS 57.4 % (40-80); PLATELET COUNT 202 10x3/uL (130-400); RBC 3.68 10x6/uL (4.00-5.40); RDW 14.3 % (11.5-14.5); WBC 5.4 10x3/uL (4.8-10.8)
[2017-10-16 08:00] VITALS: BP 96/44
[2017-10-16] MEDS ORDERED: NORVASC2.5 MG PO (08:40)
[2017-10-16] MEDS ORDERED: HYDROCODON-ACE1 EAC9 PO (09:09)
== END 2017-10-16 14:00 | disposition home health service (06) | DRG 683 ==
LOC: D.REHAB 18:15
PROVIDERS: Emergency Medicine
DX: N17.9 Acute kidney failure, unspecified (principal); E87.1 Hypo-osmolality and hyponatremia; N39.0 Urinary tract infection, site not specified; K57.92 Diverticulitis of intestine, part unspecified, without perforation or abscess without bleeding; E87.0 Hyperosmolality and hypernatremia; E87.2 Acidosis; R33.9 Retention of urine, unspecified; I10 Essential (primary) hypertension; E86.0 Dehydration; I48.2 Chronic atrial fibrillation; E78.5 Hyperlipidemia, unspecified; I25.10 Atherosclerotic heart disease of native coronary artery without angina pectoris; E03.9 Hypothyroidism, unspecified; T50.905D Adverse effect of unspecified drugs, medicaments and biological substances, subsequent encounter; F41.9 Anxiety disorder, unspecified; R53.1 Weakness; R53.83 Other fatigue; R55 Syncope and collapse; I95.9 Hypotension, unspecified; E87.6 Hypokalemia

== ENCOUNTER → 2017-12-28 11:42 | Outpatient (CLI) | payer MEDICARE ==
[2017-10-10 14:25] VITALS: BMI 35.1
[~2017-12-28 11:42] MED LIST changes: +NORVASC2.5 MG PO
[2017-12-28 12:37] LABS: BASOPHILS 0.2 % (0-2); EOSINOPHILS 2.8 % (0-7); HEMATOCRIT 38.1 % (36.0-48.0); HEMOGLOBIN 12.6 g/dL (12-16); LYMPHOCYTES 31.7 % (15-50); MCH 29.4 pg (26.0-34.0); MCHC 33.1 g/dL (31.0-37.0); MEAN PLATELET VOLUME 11.1 fL (7.4-10.4); MONOCYTES 10.2 % (2-11); NEUTROPHILS 55.1 % (40-80); PLATELET COUNT 165 10x3/uL (130-400); RBC 4.28 10x6/uL (4.00-5.40); RDW 14.5 % (11.5-14.5); WBC 4.9 10x3/uL (4.8-10.8)
[2017-12-28 12:52] LABS: ANION GAP 14.5 mmol/L (8-16); CALCIUM 10.4 mg/dL (8.5-10.1); CARBON DIOXIDE 25.6 mmol/L (21.0-32.0); CREATININE - SERUM 1.5 mg/dL (0.6-1.3); PHOSPHOROUS 3.4 mg/dL (2.5-4.9); POTASSIUM - SERUM 4.1 mmol/L (3.5-5.1)
== END | disposition home or self-care (01) ==
LOC: D.LABREF 11:42
PROVIDERS: Internal Medicine Nephrology
DX: I10 Essential (primary) hypertension (principal); I25.10 Atherosclerotic heart disease of native coronary artery without angina pectoris; T84.50XA Infection and inflammatory reaction due to unspecified internal joint prosthesis, initial encounter; T81.4XXA Infection following a procedure, initial encounter

== ENCOUNTER 2018-07-16 16:57 | Emergency (ER) | payer MEDICARE ==
[~2018-07-16] VITALS: Ht 175.3 cm; Wt 91.4 kg
[2018-07-16 17:01] VITALS: Ht 175.3 cm; Wt 91.4 kg
[2018-07-16 17:25] LABS: BASOPHILS 0.2 % (0-2); EOSINOPHILS 2.8 % (0-7); HEMOGLOBIN 12.6 g/dL (12-16); IMMATURE GRANULOCYTES 0.9 % (0-5); MCH 28.6 pg (26.0-34.0); MCHC 32.3 g/dL (31.0-37.0); MCV 88.6 fL (80.0-100.0); MEAN PLATELET VOLUME 11.7 fL (7.4-10.4); MONOCYTES 11.3 % (2-11); NEUTROPHILS 52.8 % (40-80); PLATELET COUNT 104 10x3/uL (130-400); RDW 13.6 % (11.5-14.5); WBC 5.4 10x3/uL (4.8-10.8)
[2018-07-16 17:49] LABS: ALBUMIN 3.2 g/dL (3.4-5.0); ANION GAP 14.1 mmol/L (8-16); BILIRUBIN - TOTAL 0.49 mg/dL (0.2-1.3); CARBON DIOXIDE 24.8 mmol/L (21.0-32.0); CREATININE - SERUM 1.3 mg/dL (0.6-1.3); POTASSIUM - SERUM 3.9 mmol/L (3.5-5.1); PROTEIN - SERUM 7.1 g/dL (6.4-8.2)
[2018-07-16 17:51] LABS: APPEARANCE CLEAR (CLEAR); BILIRUBIN NEGATIVE (NEGATIVE); COLOR YELLOW (YELLOW); GLUCOSE NEGATIVE (NEGATIVE); KETONE NEGATIVE (NEGATIVE); NITRITE NEGATIVE (NEGATIVE); PROTEIN NEGATIVE (NEGATIVE); SPECIFIC GRAVITY 1.015 (1.005-1.020); UROBILINOGEN NORMAL (NORMAL)
[2018-07-16 17:52] LABS: EPITHELIAL CELLS OCC /hpf (0-5); RED CELLS - URINE 0-5 /hpf (0-5); WHITE CELLS - URINE 0-5 /hpf (0-5)
[2018-07-16 17:53] LABS: BACTERIA FEW /hpf (NONE SEEN)
[2018-07-16] MEDS ORDERED: MACROBID100 MG PO (20:14)
[2018-07-16 20:43] VITALS: BP 154/71
== END 2018-07-16 20:43 | disposition home or self-care (01) ==
LOC: D.ER 16:57
PROVIDERS: Family Medicine
DX: N39.0 Urinary tract infection, site not specified (principal); Z86.73 Personal history of transient ischemic attack (TIA), and cerebral infarction without residual deficits; I50.9 Heart failure, unspecified; I25.10 Atherosclerotic heart disease of native coronary artery without angina pectoris; J44.9 Chronic obstructive pulmonary disease, unspecified; Z99.81 Dependence on supplemental oxygen; I12.9 Hypertensive chronic kidney disease with stage 1 through stage 4 chronic kidney disease, or unspecified chronic kidney disease; N18.9 Chronic kidney disease, unspecified

== ENCOUNTER 2019-02-17 12:42 | Emergency (ER) | payer MEDICARE ==
[~2019-02-17] VITALS: Ht 175.3 cm; Wt 90.9 kg
[~2019-02-17 12:42] MED LIST changes: +MACROBID100 MG PO
[2019-02-17 13:00] VITALS: Ht 175.3 cm; Wt 90.9 kg
[2019-02-17] MEDS ORDERED: AUGMENTIN 875-11 TAB PO (16:13)
[2019-02-17 16:16] LABS: BASOPHILS 0.3 % (0-2); EOSINOPHILS 3.6 % (0-7); HEMATOCRIT 41.4 % (36.0-48.0); HEMOGLOBIN 13.7 g/dL (12-16); IMMATURE GRANULOCYTES 0.2 % (0-5); LYMPHOCYTES 37.7 % (15-50); MCHC 33.1 g/dL (31.0-37.0); MCV 87.7 fL (80.0-100.0); MONOCYTES 8.1 % (2-11); NEUTROPHILS 50.1 % (40-80); RBC 4.72 10x6/uL (4.00-5.40); RDW 13.6 % (11.5-14.5); WBC 5.8 10x3/uL (4.8-10.8)
[2019-02-17 16:22] LABS: PLATELET COUNT 156 10x3/uL (130-400)
[2019-02-17 16:51] LABS: ALBUMIN 3.6 g/dL (3.4-5.0); ANION GAP 13.8 mmol/L (8-16); BILIRUBIN - TOTAL 0.47 mg/dL (0.2-1.3); CALCIUM 10.2 mg/dL (8.5-10.1); CARBON DIOXIDE 25.7 mmol/L (21.0-32.0); CREATININE - SERUM 1.3 mg/dL (0.6-1.3); POTASSIUM - SERUM 4.5 mmol/L (3.5-5.1); PROTEIN - SERUM 6.9 g/dL (6.4-8.2)
[2019-02-17 17:51] VITALS: BP 172/84
== END 2019-02-17 18:08 | disposition home or self-care (01) ==
LOC: D.ER 12:42
PROVIDERS: Family Medicine
DX: L03.116 Cellulitis of left lower limb (principal); I25.10 Atherosclerotic heart disease of native coronary artery without angina pectoris; I10 Essential (primary) hypertension; Z86.73 Personal history of transient ischemic attack (TIA), and cerebral infarction without residual deficits

== ENCOUNTER 2020-02-28 22:08 | Emergency (ER) | payer MEDICARE ==
[~2020-02-28] VITALS: Ht 175.3 cm; Wt 100.0 kg
[~2020-02-28 22:08] MED LIST changes: +AUGMENTIN 875-11 TAB PO
[2020-02-28 22:13] VITALS: Ht 175.3 cm; Wt 100.0 kg
[2020-02-29 01:25] VITALS: BP 128/74
== END 2020-02-29 01:28 | disposition home or self-care (01) ==
LOC: D.ER 22:08
DX: S09.90XA Unspecified injury of head, initial encounter (principal); T14.8XXA Other injury of unspecified body region, initial encounter; M25.511 Pain in right shoulder; W01.0XXA Fall on same level from slipping, tripping and stumbling without subsequent striking against object, initial encounter; Y93.9 Activity, unspecified; Y92.9 Unspecified place or not applicable; Z86.73 Personal history of transient ischemic attack (TIA), and cerebral infarction without residual deficits; I10 Essential (primary) hypertension; I25.2 Old myocardial infarction

== ENCOUNTER 2020-12-12 17:00 | Inpatient (IN) | payer MEDICARE ==
[~2020-12-12] VITALS: Ht 177.8 cm; Wt 93.6 kg
[2020-12-12 18:11] LABS: APTT 32.4 SECONDS (22.8-39.4); INR 1.18 (0.85-1.17); PROTIME 13.9 SECONDS (11.6-15.0)
[2020-12-12 18:12] LABS: BASOPHILS 1.1 % (0-2); EOSINOPHILS 5.9 % (0-7); HEMATOCRIT 38.1 % (36.0-48.0); HEMOGLOBIN 12.4 g/dL (12-16); LYMPHOCYTES 23.9 % (15-50); MCH 27.7 pg (26.0-34.0); MCHC 32.6 g/dL (31.0-37.0); MCV 84.8 fL (80.0-100.0); MEAN PLATELET VOLUME 9.1 fL (7.4-10.4); MONOCYTES 7.9 % (2-11); NEUTROPHILS 61.2 % (40-80); RBC 4.49 10x6/uL (4.00-5.40); RDW 14.2 % (11.5-14.5)
[2020-12-12 18:15] LABS: CALC OSMOLALITY 292 mosm/kg (275-300); CALCIUM 9.4 mg/dL (8.5-10.1); CARBON DIOXIDE 28.3 mmol/L (21.0-32.0); CHLORIDE - SERUM 108 mmol/L (98-107); CREATININE - SERUM 1.6 mg/dL (0.6-1.3); GLUCOSE 117 mg/dL (74-106); POTASSIUM - SERUM 4.3 mmol/L (3.5-5.1); SODIUM 144 mmol/L (136-145); UREA NITROGEN 27 mg/dL (7-18); eGFR NON AFRICAN AMERICAN 32 mL/min (90-120)
[2020-12-12 18:18] LABS: PLATELET COUNT 239 10x3/uL (130-400)
[2020-12-12 18:30] LABS: ALKALINE PHOSPHATASE 89 U/L (30-120); ALT (SGPT) 19 U/L (10-68); BILIRUBIN - TOTAL 0.35 mg/dL (0.2-1.3); CKMB 0.3 U/L (0.0-3.6); CREATINE KINASE 31 UL (21-215); PROTEIN - SERUM 7.1 g/dL (6.4-8.2)
[2020-12-12 18:39] LABS: ALBUMIN 3.4 g/dL (3.4-5.0); MAGNESIUM - SERUM 2.3 mg/dL (1.8-2.4)
[2020-12-12 18:41] LABS: TROPONIN-I < 0.017 ng/mL (0.000-0.060)
--- NOTE | 2020-12-12 19:45 | NUR ---
URINE COLLECTED AND SENT TO LAB
[2020-12-12 19:53] LABS: BILIRUBIN NEGATIVE (NEGATIVE); KETONE NEGATIVE (NEGATIVE); NITRITE NEGATIVE (NEGATIVE); UROBILINOGEN NORMAL mg/dL (< 2); WHITE CELLS - URINE OCC HPF (0-4)
[2020-12-12 19:54] LABS: SQUAMOUS EPITHELIAL 0-5 HPF (0-4)
[2020-12-12 20:00] VITALS: BP 212/102
[2020-12-12 21:00] VITALS: BP 194/97
[2020-12-12 22:00] VITALS: BP 177/83
[2020-12-12 23:00] VITALS: BP 168/81
--- NOTE | 2020-12-12 23:00 | NUR ---
PT GIVEN A TURKEY SANDWICH AND ICE WATER
[2020-12-13] VITALS (11 sets, daily range): BP systolic 144–195; BP diastolic 59–90; Ht 177.8 cm; Wt 93.6 kg
[2020-12-13 01:32] LABS: CKMB 0.6 U/L (0.0-3.6); CREATINE KINASE 33 UL (21-215); TROPONIN-I < 0.017 ng/mL (0.000-0.060)
--- NOTE | 2020-12-13 04:45 | NUR ---
PUREWICK PLACED ON PT. PT REQUESTED. MED/SURG BED IN PLACE OF ER STRETCHER. PT STATES FEELING MUCH MORE COMFORTABLE.
--- NOTE | 2020-12-13 06:34 | NUR ---
PT RESTING QUIETLY IN BED WITH EYES CLOSED. VSS.
[2020-12-13 07:14] LABS: BASOPHILS 1.1 % (0-2); EOSINOPHILS 4.5 % (0-7); HEMATOCRIT 35.9 % (36.0-48.0); HEMOGLOBIN 11.8 g/dL (12-16); LYMPHOCYTES 29.1 % (15-50); MCH 27.9 pg (26.0-34.0); MCHC 32.8 g/dL (31.0-37.0); MCV 85.2 fL (80.0-100.0); MEAN PLATELET VOLUME 9.3 fL (7.4-10.4); MONOCYTES 7.3 % (2-11); PLATELET COUNT 216 10x3/uL (130-400); RBC 4.22 10x6/uL (4.00-5.40); RDW 14.4 % (11.5-14.5); WBC 6.8 10x3/uL (4.8-10.8)
[2020-12-13 07:34] LABS: ALBUMIN 3.1 g/dL (3.4-5.0); ALKALINE PHOSPHATASE 87 U/L (30-120); BILIRUBIN - TOTAL 0.46 mg/dL (0.2-1.3); CALC OSMOLALITY 288 mosm/kg (275-300); CALCIUM 9.4 mg/dL (8.5-10.1); CARBON DIOXIDE 27.9 mmol/L (21.0-32.0); CHLORIDE - SERUM 110 mmol/L (98-107); CKMB 0.2 U/L (0.0-3.6); CREATINE KINASE 37 UL (21-215); CREATININE - SERUM 1.4 mg/dL (0.6-1.3); GLUCOSE 101 mg/dL (74-106); POTASSIUM - SERUM 4.2 mmol/L (3.5-5.1); PROTEIN - SERUM 6.7 g/dL (6.4-8.2); SODIUM 143 mmol/L (136-145); THYROID STIMULATING HORMONE 5.17 uIU/mL (0.36-3.74); TROPONIN-I < 0.017 ng/mL (0.000-0.060); UREA NITROGEN 24 mg/dL (7-18); eGFR NON AFRICAN AMERICAN 38 mL/min (90-120)
[2020-12-13 07:35] LABS: ALT (SGPT) 53 U/L (10-68)
[2020-12-13 12:05] LABS: CKMB 0.5 U/L (0.0-3.6); CREATINE KINASE 35 UL (21-215)
[2020-12-13 12:07] LABS: TROPONIN-I < 0.017 ng/mL (0.000-0.060)
[2020-12-13 16:19] LABS: CHOL - HDL RATIO 6.9 ratio (2.3-4.1); LDL-HDL RATIO 4.5 ratio (1.5-3.5)
--- NOTE | 2020-12-14 05:03 | NUR ---
I have reviewed this patient and I concur with the Shift Assessment completed by the Licensed Practical Nurse today this shift.
[2020-12-14 06:42] LABS: ALBUMIN 2.9 g/dL (3.4-5.0); BILIRUBIN - TOTAL 0.24 mg/dL (0.2-1.3); CALCIUM 9.2 mg/dL (8.5-10.1); CARBON DIOXIDE 24.2 mmol/L (21.0-32.0); CREATININE - SERUM 1.4 mg/dL (0.6-1.3); MAGNESIUM - SERUM 2.1 mg/dL (1.8-2.4); POTASSIUM - SERUM 4.2 mmol/L (3.5-5.1); PROTEIN - SERUM 6.3 g/dL (6.4-8.2)
[2020-12-14 07:00] LABS: BASOPHILS 0.6 % (0-2); HEMOGLOBIN 11.3 g/dL (12-16); LYMPHOCYTES 36.1 % (15-50); MCH 28.5 pg (26.0-34.0); MCHC 33.3 g/dL (31.0-37.0); MCV 85.5 fL (80.0-100.0); MEAN PLATELET VOLUME 9.5 fL (7.4-10.4); MONOCYTES 8.3 % (2-11); PLATELET COUNT 192 10x3/uL (130-400); RBC 3.98 10x6/uL (4.00-5.40); RDW 14.2 % (11.5-14.5); WBC 5.1 10x3/uL (4.8-10.8)
[2020-12-14 09:00] VITALS: BP 212/98
--- NOTE | 2020-12-14 13:09 | NUR ---
REHAB PRESCREEN RECEIVED. AT THIS TIME THE PHYSICAL THERAPY AND OCCUPATIONAL THERAPY EVALS ARE PENDING. I WILL LOOK BACK IN A BIT TO SEE IF THEY HAVE BEEN COMPLETED AND IF THEY HAVE I WILL START THE CHART SCREEN. THANK YOU FOR THIS REFERRAL. NICOLE TERRY RN CLINCAL LIAISON, INPATIENT REHAB.
[2020-12-14 15:00] VITALS: BP 126/79
[2020-12-14 20:33] VITALS: BP 213/94
[2020-12-15 00:18] VITALS: BP 143/81
--- NOTE | 2020-12-15 01:00 | NUR ---
I have reviewed this patient and I concur with the Shift Assessment completed by the Licensed Practical Nurse today this shift.
[2020-12-15 05:03] LABS: BASOPHILS 0.5 % (0-2); EOSINOPHILS 5.5 % (0-7); HEMOGLOBIN 12.1 g/dL (12-16); LYMPHOCYTES 28.5 % (15-50); MCH 27.7 pg (26.0-34.0); MCHC 32.8 g/dL (31.0-37.0); MCV 84.4 fL (80.0-100.0); MEAN PLATELET VOLUME 9.3 fL (7.4-10.4); NEUTROPHILS 57.5 % (40-80); PLATELET COUNT 190 10x3/uL (130-400); RBC 4.38 10x6/uL (4.00-5.40); RDW 14.3 % (11.5-14.5); WBC 6.1 10x3/uL (4.8-10.8)
[2020-12-15 05:19] LABS: ALBUMIN 3.1 g/dL (3.4-5.0); ANION GAP 12.9 mmol/L (8-16); BILIRUBIN - TOTAL 0.37 mg/dL (0.2-1.3); CALCIUM 9.5 mg/dL (8.5-10.1); CARBON DIOXIDE 24.2 mmol/L (21.0-32.0); CREATININE - SERUM 1.4 mg/dL (0.6-1.3); MAGNESIUM - SERUM 2.1 mg/dL (1.8-2.4); POTASSIUM - SERUM 4.1 mmol/L (3.5-5.1); PROTEIN - SERUM 6.6 g/dL (6.4-8.2)
[2020-12-15 05:21] VITALS: BP 169/88
[2020-12-15 08:38] VITALS: BP 217/94
[2020-12-15] MEDS ORDERED: ZETIA10 MG PO (09:34)
[2020-12-15] MEDS ORDERED: NORVASC5 MG PO (09:34)
--- NOTE | 2020-12-15 19:28 | MORECARE ---
CASE MANAGEMENT DISCHARGE SUMMARY PATIENT: SOHA ZAMORA UNIT: [id number] ADM DATE: 12/12/20 AGE: 85 : 35 SEX: F ROOM/BED: D.7395 AUTHOR: ERIN,DOC PHYSICIAN: REFERRING PHYSICIAN: MAURA ALEXANDER MD DATE OF SERVICE: 12/15/20 Case Management Discharge Planning Summary COMMENTS ENTERED DATE: 12/15/20 19:21 CT COMMENT TYPE: Discharge Planning REVIEWER: Diallo Jauregui CM met with patient to complete DC plan and to evaluate needs. Patient lives independently at an assisted living facility, [facility]. Patient stated that her person to notify is her sister, ALPHONSO FUCHS, [phone]. Patient stated that her home is safe and has electricity and running water. Patient stated that she has no problems paying for medications and she fills her medications at [facility]. Patient stated that her primary care physician is Dr. Barajas. CM discussed availability of home health, rehab services, and medical equipment. Patient declined HHS, SNF, IPR, and DME. Patient stated that she has a scooter, walker, and a cane. Patient voiced no other needs at this time and is satisfied with DC plan. CM will continue to follow and will assist as needed with dc plans/needs. OHP REVIEW SUMMARY ANTICIPATED D/C DATE: 12/15/2020 EXPECTED LOS : 3 CASE STATUS: DCP Initiated INITIAL REVIEW: 12/12/2020 INITIAL REVIEWER: Diallo Jauregui FINAL DISCHARGE DISPOSITION: : FINAL REVIEWER: FINAL REVIEW DATE: DCP Focus Questions & Answers DCP Evaluation QUESTION: ANSWER Patient gives permission to discuss discharge plans with: (name, relationship and number) : sister, ALPHONSO FUCHS, [phone] Patient's ability to cope with chronic illness : d. No chronic illness Patient's current cognitive status: : *Oriented to person, place, situation, time and present Family / Caregiver's ability to cope with chronic illness: : a. Adequate (ability to meet patient's medical needs, ensures patient attends medical appts.) Patient and/or caregiver agree upon recommended discharge plan? : Yes Physical Status: : Mobility impaired Physical Status: : Partial care dependence Family / Caregiver's ability to cope with chronic illness: : a. Adequate (ability to meet patient's medical needs, ensures patient attends medical appts.) Functional screen assessment: : Basic needs can adequately be met by self Does the patient have the ability to pay for or attain post discharge needs / services? : Yes Partial Dependence, assistance required for: : Ambulation / Mobility Partial Dependence, assistance required for: : Bathing Partial Dependence, assistance required for: : Dressing Partial Dependence, assistance required for: : Eating Living Arrangements: : Assisted Living Is there a likelihood that the patient will require additional services to return to the preadmission environment? : No Equipment needed for post hospitalization: : None Baseline cognitive status: : *Oriented to person, place, situation, time and present Patient with capacity for self-care or can be cared for in same environment as prior to hospitalization? : Yes Facility / Agency name and contact information from Question 3 (if applicable): : [facility] Physical environment modification needed / anticipated for discharge: : No Medication Management: : Patient states can afford medications Medication Management: : Patient states can read and understand medication labels Pharmacy name(s): : [facility] Does Patient have transportation to get home and to follow-up medical appointments when discharged from the hospital? : Yes Would patient like to participate in any Care Coordination programs (if applicable): : Not applicable Does the patient have electricity at home? : Yes Does the patient have running water in their house? : Yes Equipment in use: : Cane - Single Leg Equipment in use: : Scooter Equipment in use: : Walker - Rolling Mental health screen: : No mental health history DCP Re-evaluation QUESTION: ANSWER Would patient like to participate in any Care Coordination programs (if applicable): : Not applicable PATIENT: SOHA ZAMORA ENCOUNTER: [id number] MEDICAL RECORD#: [id number] ADMISSION DATE: 12/12/2020 DISCHARGE DATE: 12/15/2020 ATTENDING MD: MAURA BURGESS : AGE: 85 MARITAL STATUS: W DC PLAN ID: [id number] FACILITY: [facility] PRINTED ON: 12/15/20 19:27 CT All edits/amendments must be made on the electronic document DICTATION DATE: 12/15/201926 IRONWORKER APPRENTICE: NATHAN 12/15/201926 RPT#: [id number] DC DATE:12/15/20 STATUS: DIS IN [facility] [address] [place] [address] END OF REPORT
--- NOTE | 2020-12-17 16:41 | MORECARE ---
CASE MANAGEMENT DISCHARGE SUMMARY PATIENT: SOHA ZAMORA UNIT: [id number] ADM DATE: 12/12/20 AGE: 85 : 35 SEX: F ROOM/BED: D.4599 AUTHOR: ERIN,DOC PHYSICIAN: REFERRING PHYSICIAN: MAURA ALEXANDER MD DATE OF SERVICE: 12/17/20 Case Management Discharge Planning Summary COMMENTS ENTERED DATE: 12/15/20 19:21 CT COMMENT TYPE: Discharge Planning REVIEWER: Diallo Jauregui CM met with patient to complete DC plan and to evaluate needs. Patient lives independently at an assisted living facility, [facility]. Patient stated that her person to notify is her sister, ALPHONSO FUCHS, [phone]. Patient stated that her home is safe and has electricity and running water. Patient stated that she has no problems paying for medications and she fills her medications at [facility]. Patient stated that her primary care physician is Dr. Barajas. CM discussed availability of home health, rehab services, and medical equipment. Patient declined HHS, SNF, IPR, and DME. Patient stated that she has a scooter, walker, and a cane. Patient voiced no other needs at this time and is satisfied with DC plan. CM will continue to follow and will assist as needed with dc plans/needs. INP REVIEW SUMMARY ANTICIPATED D/C DATE: 12/15/2020 EXPECTED LOS : 3 CASE STATUS: DCP Initiated INITIAL REVIEW: 12/12/2020 INITIAL REVIEWER: Diallo Jauregui FINAL DISCHARGE DISPOSITION: : FINAL REVIEWER: FINAL REVIEW DATE: INP Focus Questions & Answers DCP Evaluation QUESTION: ANSWER Patient and/or caregiver agree upon recommended discharge plan? : Yes Family / Caregiver's ability to cope with chronic illness: : a. Adequate (ability to meet patient's medical needs, ensures patient attends medical appts.) Patient's current cognitive status: : *Oriented to person, place, situation, time and present Patient's ability to cope with chronic illness : d. No chronic illness Patient gives permission to discuss discharge plans with: (name, relationship and number) : sister, ALPHONSO FUCHS, [phone] Does the patient have the ability to pay for or attain post discharge needs / services? : Yes Functional screen assessment: : Basic needs can adequately be met by self Family / Caregiver's ability to cope with chronic illness: : a. Adequate (ability to meet patient's medical needs, ensures patient attends medical appts.) Physical Status: : Partial care dependence Physical Status: : Mobility impaired Equipment needed for post hospitalization: : None Is there a likelihood that the patient will require additional services to return to the preadmission environment? : No Living Arrangements: : Assisted Living Partial Dependence, assistance required for: : Eating Partial Dependence, assistance required for: : Dressing Partial Dependence, assistance required for: : Bathing Partial Dependence, assistance required for: : Ambulation / Mobility Patient with capacity for self-care or can be cared for in same environment as prior to hospitalization? : Yes Baseline cognitive status: : *Oriented to person, place, situation, time and present Physical environment modification needed / anticipated for discharge: : No Facility / Agency name and contact information from Question 3 (if applicable): : [facility] Medication Management: : Patient states can read and understand medication labels Medication Management: : Patient states can afford medications Pharmacy name(s): : [facility] Does Patient have transportation to get home and to follow-up medical appointments when discharged from the hospital? : Yes Would patient like to participate in any Care Coordination programs (if applicable): : Not applicable Does the patient have electricity at home? : Yes Does the patient have running water in their house? : Yes Equipment in use: : Walker - Rolling Equipment in use: : Scooter Equipment in use: : Cane - Single Leg Mental health screen: : No mental health history DCP Re-evaluation QUESTION: ANSWER Would patient like to participate in any Care Coordination programs (if applicable): : Not applicable PATIENT: SOHA ZAMORA ENCOUNTER: [id number] MEDICAL RECORD#: [id number] ADMISSION DATE: 12/12/2020 DISCHARGE DATE: 12/15/2020 ATTENDING MD: MAURA BURGESS : AGE: 85 MARITAL STATUS: W DC PLAN ID: [id number] FACILITY: [facility] PRINTED ON: 12/17/20 16:40 CT All edits/amendments must be made on the electronic document DICTATION DATE: 12/17/20 1640 CHEF BROILER OR FRY: NATHAN 12/17/20 1640 RPT#: [id number] DC DATE:12/15/20 STATUS: DIS IN [facility] [address] [place] [address] END OF REPORT
--- NOTE | 2020-12-18 08:13 | EC ---
PATIENT:SOHA ZAMORA DATE OF SERVICE: 12/12/20 SEX: F MEDICAL RECORD: [id number] DATE OF : 35 LOCATION:D.M2 D.213 AGE OF PATIENT: 85 ADMISSION DATE: 12/12/20 REFERRING PHYSICIAN: INTERPRETING PHYSICIAN: CYNTHIA ZAIDI MD ECHOCARDIOGRAM REPORT ECHO CHARGES 4 ECHO COMPLETE Date: 12/13/20 CLINICAL DIAGNOSIS: PRESYNCOPE ECHOCARDIOGRAPHIC MEASUREMENTS (adult normal given) AC root (d.<3.7cm) 3.0 cm LV Septum d (<1.2 cm> 1.5 cm Valve Excursion 1.8 cm LV Septum (systole) 1.6 cm Left Atria (s.<4.0cm> 4.0 cm LVPW d(<1.2cm) 1.4 cm RV (d.<2.3cm) 4.1 cm LVPW (sytole) 1.2 cm LV diastole(<5.6CM) 4.1 cm MV E-F(>70mm/sec) cm LV systole 2.7 cm LVOT Diameter 1.8 cm MV exc.(>10mm) cm Est.ejection fraction (50-75%) 55 % DOPPLER: LVIT cm/sec A 113 cm/sec E 121 cm/sec LA cm/sec RVSP 53 mmHg LVOT 133 cm/sec AOP1/2T m/s Asc. Ao 170 cm/sec RVOT cm/sec RA 5.6 cm/sec PA cm/sec AV Gradient Peak 11 mmHg AV Mean 5 mmHg AV Area 2.0 cm MV Gradient Peak 6 mmHg MV Mean 2 mmHg MV Area cm COMMENTS: Freight Traffic Consultant: Marcus FREDERICK Equipment Oiler: 3 Dr. Duncan TAPE# Pericardial Effusion N DATE OF SERVICE: Adequate 2D, color flow imaging, spectral Doppler, and M-Mode. LVH is present. LV internal dimensions are normal. Wall motion is normal. EF is greater than or equal to 55%. Aortic valve is tricuspid. No evidence of stenosis by Doppler interrogation. Left atrium is normal at 3.8cm. Mitral valve shows no prolapse. Mild MR. Right side is grossly normal. Mild TR. TRANSINT:[id number] Voice Confirmation ID: [id number] DOCUMENT ID: [id number] ECHOCARDIOGRAM REPORT [id number] SOHA ZAMORA CYNTHIA ZAIDI MD at 0813 CC: [id number] DICTATION DATE: 12/14/20914 OIL AND GAS RECRUITER: 12/14/20 1129 DIS IN 12/15/20 [id number] [place] [address]
== END 2020-12-15 11:49 | disposition home or self-care (01) | DRG 312 ==
LOC: D.ER 17:00 → D.M2 22:27 → D.EDHOLD 22:27 → D.M2 12-13 15:17
PROVIDERS: Emergency Medicine; Family Medicine; Internal Medicine Cardiovascular Disease; ADMIT Family Medicine; ATTEND Family Medicine
DX: R55 Syncope and collapse (principal); I13.0 Hypertensive heart and chronic kidney disease with heart failure and stage 1 through stage 4 chronic kidney disease, or unspecified chronic kidney disease; J96.11 Chronic respiratory failure with hypoxia; R53.1 Weakness; E78.5 Hyperlipidemia, unspecified; I25.10 Atherosclerotic heart disease of native coronary artery without angina pectoris; N18.9 Chronic kidney disease, unspecified; I50.9 Heart failure, unspecified; G89.29 Other chronic pain; M54.9 Dorsalgia, unspecified; M19.90 Unspecified osteoarthritis, unspecified site; E03.9 Hypothyroidism, unspecified; Z91.81 History of falling; Z86.73 Personal history of transient ischemic attack (TIA), and cerebral infarction without residual deficits